=== PATIENT | male | born 1990 | race Two or more races ===

== ENCOUNTER 2020-03-02 04:53 | Emergency (ER) | payer OTHER ==
[~2020-03-02] VITALS: Ht 182.9 cm; Wt 109.3 kg
[2020-03-02] MEDS ORDERED: ACETAMINOPHEN 325MG TABLET PO ONE (05:15)
[2020-03-02] MEDS ORDERED: ONDANSETRON HCL 4MG/2ML INJ IV ONE (05:45)
[2020-03-02] MEDS ORDERED: FLUORESCEIN SODIUM 1MG/STRIP RIGHTEYE ONE (06:45)
[2020-03-02] MEDS ORDERED: TETRACAINE 0.5% OPHTH DROPS 4ML RIGHTEYE ONE (06:45)
[2020-03-02 07:16] VITALS: BP 113/63
== END 2020-03-02 07:17 | disposition home or self-care (01) ==
LOC: ER 04:53
DX: S02.31XA Fracture of orbital floor, right side, initial encounter for closed fracture (principal); V49.49XA Driver injured in collision with other motor vehicles in traffic accident, initial encounter; Y93.89 Activity, other specified; Y92.89 Other specified places as the place of occurrence of the external cause; Y99.8 Other external cause status
CPT/HCPCS: 70450; 70486; 96374; 99285; J2405